=== PATIENT | female | born 1985 | race Caucasian/White ===

== ENCOUNTER 2020-06-19 16:22 | Emergency (ER) | payer MEDICAID ==
[~2020-06-19] VITALS: Ht 167.6 cm; Wt 63.5 kg
[2020-06-19 17:12] VITALS: BP 155/101
[2020-06-19] MEDS ORDERED: IBUPROFEN 600 MG TAB PO ONE (18:00)
== END 2020-06-19 18:08 | disposition home or self-care (01) ==
LOC: ER 16:22
DX: S60.212A Contusion of left wrist, initial encounter (principal); X58.XXXA Exposure to other specified factors, initial encounter; Y93.89 Activity, other specified; Y92.89 Other specified places as the place of occurrence of the external cause; Y99.8 Other external cause status
CPT/HCPCS: 73110